=== PATIENT | female | born 2000 | race Caucasian/White ===

== ENCOUNTER 2019-12-16 00:49 | Emergency (ER) | payer BC, MEDICAID ==
[2019-12-16] MEDS: LORazepam 1 MG Tab PO ONE (01:15)
--- NOTE | 2019-12-16 01:15 | EDM.PDOC ---
ED HPI GENERAL MEDICAL PROBLEM - General Chief Complaint: Cardiovascular Problem Stated Complaint: palpitations Time Seen by Provider: 12/16/19 00:55 Source of Information: Reports: Patient History Limitations: Reports: No Limitations - History of Present Illness INITIAL COMMENTS - FREE TEXT/NARRATIVE: Patient comes emergency department today with complaints of a racing heart sensation. This patient was laying in bed when she rolled over she suddenly felt that her heart was racing quite fast. She used her apple watch at home and noted that her heart rate was anywhere between 120 240 bpm. She has had about 2-3 episodes of this in the past 3 to 4 months or so. She has never had any weakness dizziness lightheadedness or syncope. She has never felt faint. She has not had any chest pain shortness of breath cough or congestion. No fever no chills. No abdominal pain no nausea no vomiting no diarrhea. No hematuria some questionable frequency but no dysuria. No black or tarry stools. No recent change in the frequency of her bowel movements. She has not purposefully lost about 25 pounds in the last year. She has had no change in her hair or nails. She does admit that she has some history of anxiety not diagnosed but she is never really ruminate her it does not keep her up at night. She has about 1 caffeinated drink a day. She denies any drugs or alcohol. She relates that her mood is pretty unremarkable over the past couple of years. He is currently not using any weight loss pills. She does have one herbal life Tea daily that has not changed in the product for the past 6-8 months. She does not have any problems sleeping. She feels shaky and anxious and nervous. She denies any recent stress trauma or other social anxieties. She knows that her heart rate has been elevated at home ever since she got her apple watch which tells her the heart rate and she is constantly checking her heart rate. NO tobacco products. - Related Data Allergies Allergy/AdvReac Type Severity Reaction Status Date / Time azithromycin [From Zithromax] Allergy Cannot Verified 12/16/19 00:50 Remember Home Meds: Home Meds LORazepam [Lorazepam] 0.5 mg PO TID PRN #9 tablet 12/16/19 [Rx] Past Medical History - Past Health History Medical/Surgical History: Denies Medical/Surgical History Social & Family History - Tobacco Use Smoking Status *Q: Never Smoker - Recreational Drug Use Recreational Drug Use: No ED ROS GENERAL - Review of Systems Review Of Systems: Comprehensive ROS is negative, except as noted in HPI. ED EXAM, GENERAL - Physical Exam Exam: See Below Free Text/Narrative:: Her heart rate at rest is aprox 120, but when she returned from the bathroom her heart rate was aprox 140 which slowly returned to 120 shortly after laying down. Hair and nails are really unremarkable. Exam Limited By: No Limitations General Appearance: Alert, WD/WN, No Apparent Distress Eye Exam: Bilateral Eye: EOMI, PERRL Ears: Normal External Exam, Normal Canal, Normal TMs Nose: Normal Inspection, Normal Mucosa, No Blood Throat/Mouth: Normal Inspection, Normal Lips, Normal Teeth, Normal Oropharynx, Normal Voice, No Airway Compromise Head: Atraumatic, Normocephalic Neck: Normal Inspection, Supple, Non-Tender Respiratory/Chest: No Respiratory Distress, Lungs Clear, Normal Breath Sounds, No Accessory Muscle Use, Chest Non-Tender Cardiovascular: Normal Peripheral Pulses, Regular Rate, Rhythm Peripheral Pulses: 2+: Radial (L), Radial (R), Posterior Tibial (L), Posterior Tibial (R), Dorsalis Pedis (L), Dorsalis Pedis (R) GI/Abdominal: Normal Bowel Sounds, Soft, Non-Tender (Female) Exam: Deferred Rectal (Female) Exam: Deferred Back Exam: Normal Inspection, Full Range of Motion Extremities: Normal Inspection, Normal Range of Motion, Non-Tender, No Pedal Edema, Normal Capillary Refill Neurological: Alert, Oriented, CN II-XII Intact, Normal Cognition, Normal Gait, Normal Reflexes, No Motor/Sensory Deficits Psychiatric: Anxious Skin Exam: Warm, Dry, Intact, Normal Color Lymphatic: No Adenopathy EKG INTERPRETATION EKG Date: 12/16/19 Time: 12:39 Rhythm: Other (Sinus Tach) Rate (Beats/Min): 131 [employer]: Normal P-Wave: Present QRS: Normal ST-T: Normal QT: Normal Course - Vital Signs Last Recorded V/S: Last Vital Signs Temp 37.4 C 12/16/19 00:50 Pulse 145 H 12/16/19 00:50 Resp 16 12/16/19 00:50 BP 152/86 H 12/16/19 00:50 Pulse Ox 100 12/16/19 00:50 - Orders/Labs/Meds Orders: Active Orders 24 hr Category Date Time Status EKG Documentation Completion [RC] STAT Care 12/16/19 00:55 Active Labs: Laboratory Tests 12/16/19 12/16/19 12/16/19 Range/Units 00:55 00:55 00:55 WBC (4.0-10.0) x10^3/uL RBC (4.00-5.50) x10^6/uL Hgb (12.0-16.0) g/dL Hct (33.0-47.0) % MCV (78.0-93.0) fL MCH (26.0-32.0) pg MCHC (32.0-36.0) g/dL RDW Coeff of Nikita (10.0-15.0) % Plt Count (130-400) x10^3/uL Neut % (Auto) (50.0-80.0) % Lymph % (Auto) (25.0-50.0) % [place] % (Auto) (2.0-11.0) % Eos % (Auto) (0.0-4.0) % Baso % (Auto) (0.2-1.2) % Sodium (136-145) mmol/L Potassium (3.5-5.1) mmol/L Chloride (98-107) mmol/L Carbon Dioxide (21-32) mmol/L Anion Gap (10-20) mmol/L BUN (7-18) mg/dL Creatinine (0.55-1.02) mg/dL Est Cr Clr Drug Dosing mL/min Estimated GFR (MDRD) Glucose (74-106) mg/dL Calcium (8.5-10.1) mg/dL Corrected Calcium (8.5-10.1) mg/dL Total Bilirubin (0.2-1.0) mg/dL AST (15-37) U/L ALT (14-59) U/L Alkaline Phosphatase (46-116) U/L Troponin I (<=0.056) ng/mL Total Protein (6.4-8.2) g/dL Albumin (3.4-5.0) g/dL Globulin Albumin/Globulin Ratio TSH, Ultra Sensitive (0.516-4.13) uIU/mL Urine Color Light yellow (YELLOW) Urine Appearance Clear (CLEAR) Urine pH 6.5 (5.0-8.0) Ur Specific [place] 1.010 Urine Protein Negative (NEGATIVE) mg/dL Urine Glucose (UA) Negative (NEGATIVE) mg/dL Urine Ketones Negative (NEGATIVE) mg/dL Urine Occult Blood Negative (NEGATIVE) Urine Nitrite Negative (NEGATIVE) Urine Bilirubin Negative (NEGATIVE) Urine Urobilinogen 0.2 (0.2) EU/dL Ur Leukocyte Esterase Negative (NEGATIVE) Urine HCG, Qual Negative (NEGATIVE) Urine Opiates Screen Negative (NEGATIVE) Ur Buprenorphine Scrn Negative (NEGATIVE) Ur Oxycodone Screen Negative (NEGATIVE) Ur EDDP (Meth Metab) Negative (NEGATIVE) Urine Methadone Screen Negative (NEGATIVE) Ur Barbiturates Screen Negative (NEGATIVE) Ur Tricyclics Screen Negative (NEGATIVE) Ur Phencyclidine Scrn Negative (NEGATIVE) Ur Amphetamine Screen Negative (NEGATIVE) U Methamphetamines Scrn Negative (NEGATIVE) Urine MDMA Screen Negative (NEGATIVE) U Benzodiazepines Scrn Negative (NEGATIVE) U Cocaine Metab Screen Negative (NEGATIVE) U Marijuana (THC) Screen Negative (NEGATIVE) 12/16/19 12/16/19 Range/Units 01:24 01:24 WBC 5.3 (4.0-10.0) x10^3/uL RBC 4.53 (4.00-5.50) x10^6/uL Hgb 13.3 (12.0-16.0) g/dL Hct 38.9 (33.0-47.0) % MCV 85.9 (78.0-93.0) fL MCH 29.4 (26.0-32.0) pg MCHC 34.2 (32.0-36.0) g/dL RDW Coeff of Nikita 11.8 (10.0-15.0) % Plt Count 148 (130-400) x10^3/uL Neut % (Auto) 56.8 (50.0-80.0) % Lymph % (Auto) 31.9 (25.0-50.0) % [place] % (Auto) 8.8 (2.0-11.0) % Eos % (Auto) 1.9 (0.0-4.0) % Baso % (Auto) 0.6 (0.2-1.2) % Sodium 144 (136-145) mmol/L Potassium 3.6 (3.5-5.1) mmol/L Chloride 107 (98-107) mmol/L Carbon Dioxide 25 (21-32) mmol/L Anion Gap 15.6 (10-20) mmol/L BUN 12 (7-18) mg/dL Creatinine 0.8 (0.55-1.02) mg/dL Est Cr Clr Drug Dosing 100.94 mL/min Estimated GFR (MDRD) > 60 Glucose 114 H (74-106) mg/dL Calcium 8.9 (8.5-10.1) mg/dL Corrected Calcium 8.90 (8.5-10.1) mg/dL Total Bilirubin 0.4 (0.2-1.0) mg/dL AST 14 L (15-37) U/L ALT 16 (14-59) U/L Alkaline Phosphatase 51 (46-116) U/L Troponin I < 0.017 (<=0.056) ng/mL Total Protein 6.8 (6.4-8.2) g/dL Albumin 4.0 (3.4-5.0) g/dL Globulin 2.8 Albumin/Globulin Ratio 1.43 TSH, Ultra Sensitive 4.997 H (0.516-4.13) uIU/mL Urine Color (YELLOW) Urine Appearance (CLEAR) Urine pH (5.0-8.0) Ur Specific [place] Urine Protein (NEGATIVE) mg/dL Urine Glucose (UA) (NEGATIVE) mg/dL Urine Ketones (NEGATIVE) mg/dL Urine Occult Blood (NEGATIVE) Urine Nitrite (NEGATIVE) Urine Bilirubin (NEGATIVE) Urine Urobilinogen (0.2) EU/dL Ur Leukocyte Esterase (NEGATIVE) Urine HCG, Qual (NEGATIVE) Urine Opiates Screen (NEGATIVE) Ur Buprenorphine Scrn (NEGATIVE) Ur Oxycodone Screen (NEGATIVE) Ur EDDP (Meth Metab) (NEGATIVE) Urine Methadone Screen (NEGATIVE) Ur Barbiturates Screen (NEGATIVE) Ur Tricyclics Screen (NEGATIVE) Ur Phencyclidine Scrn (NEGATIVE) Ur Amphetamine Screen (NEGATIVE) U Methamphetamines Scrn (NEGATIVE) Urine MDMA Screen (NEGATIVE) U Benzodiazepines Scrn (NEGATIVE) U Cocaine Metab Screen (NEGATIVE) U Marijuana (THC) Screen (NEGATIVE) Meds: Medications Discontinued Medications Generic Name Dose Route Start Last Admin Trade Name Freq PRN Reason Stop Dose Admin Lorazepam 1 mg 12/16/19 01:08 12/16/19 01:15 Ativan PO 12/16/19 01:09 1 mg ONETIME ONE Administration - Re-Assessments/Exams Free Text/Narrative Re-Assessment/Exam: 12/16/19 02:06 The patient was given 1 mg of Ativan orally. Her EKG is Sinus Tach otherwise normal. Her labs are really unremarkable other than a mildly elevated TSH for hypothyroidism which is not consistent with tachycardia or palpitations. UDS and UA CBC and CMP troponin all normal. 12/16/19 02:30 The patient does feel less jittery and shaky. I reviewed her really normal laboratory evaluation. I am unsure of what is causing her palpitations tachycardia. Note that most of the sensation is started since she has been checking her heart rate on a regular basis on her apple watch. I would like her to keep a diary of when she is feeling these palpitations. Make sure that she is not taking any caffeine. Ensure that the herbal leaf tea that she is taking is to not have any stimulants in it. If she continues to have these symptoms she can try some Ativan over the next couple of days. If it is not resolving over the weekend and like her to follow-up with PCP on Saturday for recheck possible Holter monitor placement. She is comfortable with this plan and her questions are answered. Departure - Departure Time of Disposition: 02:21 Disposition: Home, Self-Care 01 Clinical Impression: Tachycardia, Palpitations Hypothyroidism Qualifiers: Hypothyroidism type: unspecified Qualified Code(s): E03.9 - Hypothyroidism, unspecified Instructions: Palpitations, [id number], Sinus Tachycardia Forms: ED Department Discharge Additional Instructions: No caffeine. Make sure and drink plenty of fluids over the next few days. Try not to check your heart rate unless you feel symptoms of weakness dizziness or faintness. Keep a diary of when you feel these symptoms over the next few days. If the shakiness or jitteriness returns try the Lorazepam, 1 tablet three times a day as needed for symptoms. Caution sedation RX to [facility]. Follow up with Dr. Rodriguez at [facility] on saturday if symptoms continue for recheck. Return to the ED if new or worsening symptoms. Sepsis Event Note - Evaluation Sepsis Screening Result: No Definite Risk - Focused Exam Vital Signs: Vital Signs Temp Pulse Resp BP Pulse Ox 12/16/19 00:50 37.4 C 145 H 16 152/86 H 100 Date Exam was Performed: 12/16/19 Time Exam was Performed: 02:05 - My Orders Last 24 Hours: My Active Orders 12/16/19 00:55 EKG Documentation Completion [RC] STAT - Assessment/Plan Last 24 Hours: My Active Orders 12/16/19 00:55 EKG Documentation Completion [RC] STAT Assessment:: Tachycardia-? anxiety Palpitations. Hypothyroidism mild Plan: No caffeine. Make sure and drink plenty of fluids over the next few days. Try not to check your heart rate unless you feel symptoms of weakness dizziness or faintness. Keep a diary of when you feel these symptoms over the next few days. If the shakiness or jitteriness returns try the Lorazepam, 1 tablet three times a day as needed for symptoms. Caution sedation RX to [facility]. Follow up with Dr. Rodriguez at [facility] on saturday if symptoms continue for recheck. Return to the ED if new or worsening symptoms.
[2019-12-16 01:45] LABS: BARBITURATE SCREEN,URINE NEGATIVE (NEGATIVE); BENZODIAZEPINES SCREEN,URINE NEGATIVE (NEGATIVE); EDDP,URINE SCREEN NEGATIVE (NEGATIVE); METHAMPHETAMINE SCREEN, URINE NEGATIVE (NEGATIVE); TCA SCREEN,URINE NEGATIVE (NEGATIVE); THC SCREEN,URINE 50 NG/ML NEGATIVE (NEGATIVE)
[2019-12-16 01:59] LABS: ANION GAP 15.6 mmol/L (10-20); CHLORIDE,CL 107 mmol/L (98-107); SODIUM,NA 144 mmol/L (136-145)
== END 2019-12-16 02:35 | disposition home or self-care (01) ==
LOC: VM.ED 00:49
DX: R00.2 Palpitations (principal); R00.0 Tachycardia, unspecified; E03.9 Hypothyroidism, unspecified; Z88.1 Allergy status to other antibiotic agents
CPT/HCPCS: 36415; 80053; 80305-QW; 81003; 81025; 84443; 84484; 85025; 93005; 99285-25; A9270-GY